=== PATIENT | male | born 1985 | race Hispanic/Latino ===

== ENCOUNTER 2018-06-17 18:31 | Emergency (ER) | payer SELFPAY ==
[~2018-06-17] VITALS: Ht 175.3 cm; Wt 100.0 kg
[~2018-06-17 18:31] MED LIST: NO HOME MEDS
[2018-06-17] MEDS ORDERED: IBUPROFEN600 MG PO (19:40)
[2018-06-17] MEDS ORDERED: KEFLEX500 M1 PO (19:40)
[2018-06-17] MEDS ORDERED: BACTRIM DS1 TAB PO (19:40)
[2018-06-17 19:44] VITALS: BP 148/82
== END 2018-06-17 19:50 | disposition home or self-care (01) | DRG 603 ==
LOC: ED 18:31
DX: L03.113 Cellulitis of right upper limb (principal); M25.421 Effusion, right elbow

== ENCOUNTER 2018-06-19 15:41 | Observation (INO) | payer SELFPAY ==
[~2018-06-19] VITALS: Ht 175.3 cm; Wt 107.5 kg
[~2018-06-19 15:41] MED LIST changes: +BACTRIM DS1 TAB PO; +IBUPROFEN600 MG PO; +KEFLEX500 M1 PO
--- NOTE | 2018-06-19 15:51 | NUR ---
PT TO ROOM FOR EXAM
--- NOTE | 2018-06-19 16:00 | NUR ---
IV INITIATED AND LABS AND BC X 2 COLLECTED. PT AWARE OF PROBABLE PLAN OF CARE AND WAIT TIME. CALL DAVISON WITHIN REACH.
[2018-06-19 16:25] LABS: HEMATOCRIT 43.7 % (39.0-50.0); IMMATURE GRANULOCYTES 0.2 % (0.0-5.0); MEAN CELL VOLUME 91.4 fL CALC (80.0-100.0); MEAN CORPUSCULAR HGB 33.5 pG CALC (26.0-32.0); MEAN CORPUSCULAR HGB CONC 36.6 g/L CALC (32.0-36.0); NEUT# 8.81 thou/uL (1.82-7.42); RED BLOOD COUNT 4.78 mill/uL (4.70-6.10); RED CELL DISTRI WIDTH 11.1 % (11.5-15.5)
[2018-06-19 16:43] LABS: ALKALINE PHOSPHATASE 102 u/l (38-126); ANION GAP 12 (6-22 (CALC)); BILIRUBIN, TOTAL 0.6 mg/dL (0.0-1.4); BUN 21 mg/dL (9-20); BUN/CREATININE RATIO 17 (12-20 (CALC)); CARBON DIOXIDE 26 mmol/l (22-30); CHLORIDE 105 mmol/l (95-108); CREATININE 1.2 mg/dL (0.7-1.3); GFR > 60 ML/MIN (>=60 (CALC)); GFR FOR AFR.AMER. > 60 ML/MIN (>=60 (CALC)); POTASSIUM 4.2 mmol/l (3.5-5.1); SGOT/AST 32 u/l (17-59); SODIUM 139 mmol/l (137-146); TOTAL PROTEIN 7.3 g/dL (6.3-8.2)
--- NOTE | 2018-06-19 17:00 | NUR ---
PT RESTING COMFORTABLY IN STRETCHER AND DENIES ANY NEEDS AT THIS TIME. PT AWARE OF PENDING RESULTS AND WAIT TIME. CALL DAVISON WTIN REACH.
--- NOTE | 2018-06-19 17:30 | NUR ---
PT AWARE OF PROBABLE PLAN OF CARE AND WAIT TIME. IV ABX INITIATED PER ORDER. PT AND FRIEND DENY ANY NEEDS AT THIS TIME. CALL DAVISON WITHIN REACH.
--- NOTE | 2018-06-19 17:50 | NUR ---
SBAR PRINTED TO FLOOR
--- NOTE | 2018-06-19 18:07 | NUR ---
MD AT BEDSIDE TO DISCUSS RESULTS AND DISCUSS ADMISSION.
--- NOTE | 2018-06-19 18:19 | NUR ---
REPORT CALLED TO KATIE RUIZ.
--- NOTE | 2018-06-19 18:38 | NUR ---
Admission Note Report Given to: KATIE RUIZ Transported by: X Wheelchair Stretcher Transported with: X Nurse Transporter Patent IV [id number] Liquefier PT TO ROOM 272 IN STABLE CONDITION.
[2018-06-19 18:40] VITALS: BP 127/80
--- NOTE | 2018-06-19 18:40 | NUR ---
PT ARRIVED VIA WC ACCOMPANIED BY STAFF. IV SITE IS FREE FROM REDNESS OR EDEMA. AND FAMILY MEMBER
--- NOTE | 2018-06-19 19:13 | NUR ---
REPORT RECEIVED BY DAY NURSE. PT IS UPRIGHT IN BED WATCHING TV. DENIES ANY NEEDS AT THIS TIME. CALL LIGHT AT BEDSIDE.
--- NOTE | 2018-06-20 00:08 | NUR ---
PT AND FAMILY MEMBER ARE SLEEPING SOUNDLY UPON ENTERING ROOM. PT MEDICATED W/IV ANTIBIOTIC THERAPY. DENIES ANY OTHER NEEDS. CALL LIGHT AT SIDE.
[2018-06-20 04:32] VITALS: BP 118/77
--- NOTE | 2018-06-20 05:15 | NUR ---
PT MEDICATED W/IV ANTIBIOTIC THERAPY. PT IS AWAKE AND WATCHING TV W/FAMILY AT BEDSIDE ASLEEP ON COT. PT DENIES ANY NEEDS AT THIS TIME. NO S/S OF DISTRESS NOTED. CALL LIGHT IN HAND AND PT ENCOURAGED TO CALL IF ANY NEEDS ARISE.
--- NOTE | 2018-06-20 07:00 | NUR ---
RECEIVED REPORT FROM MARÍA ELENA YATES. PT RESTING IN BED. NO S/S OF DISTRESS. CALL DAVISON IN REACH. WILL CONTINUE TO MONITOR.
[2018-06-20 08:49] VITALS: BP 127/89
--- NOTE | 2018-06-20 08:49 | NUR ---
PT RESTING IN BED WITH SPOUSE AT BEDSIDE. PT A&O x3. ASSESSMENT COMPLETED AT THIS TIME(SEE INTERVENTION) LUNG SOUNDS CLEAR, HEART SOUNDS NORMAL, BOWEL SOUDS ACTIVE NO SWELLING OR EDEMA NOTED TO LOWER EXTREMITIES. RIGHT ELBOW IS SWOLLEN AND RED WITH NO OPEN AREA OR DRAINAGE NOTED. PT PAIN IS A 4 AT THIS TIME. IV INFUSING WELL NO REDNESS OR EDEMA TO SITE. PT HAS NO OTHER COMPLAINTS AT THIS TIME. CALL DAVISON IN REACH. WILL CONTINUE TO MONITOR.
--- NOTE | 2018-06-20 09:02 | NUR ---
S: DIAMOND SAMAYOA JR is a 32 M who presents with right arm cellulitis. All medications in patient's chart were reviewed. O: VS: BP 118/77, P 72, RR 18,T 97.3 W 107.501 kg, HT 175.26 cm, Scr= 1.2 ,CrCl= 105.79 ml/min A: Blood culture is pending. P: Patient is on zosyn 3.375 gm IV Q6H. Vancomycin ordered for pharmacy to dose. Start Vancomycin 1 gm IV Q8H. Vancomycin trough is drawn before the 4th dose on 06/21/18 at 0500. Vancomycin goal trough is between 10-15 mcg/ml. Pharmacy will follow and or advise on antibiotics use as needed.
--- NOTE | 2018-06-20 10:58 | NUR ---
PT MEDICATED PER ORDER FOR PAIN 11/05. WILL CONTINUE TO MONITOR.
--- NOTE | 2018-06-20 11:30 | NUR ---
PT PAIN NOW AT A 1. TORODOL EFFECTIVE AT THIS TIME. FREDI DESOUZA NOTIFIED.
--- NOTE | 2018-06-20 11:30 | NUR ---
PT TRANSFERRED TO [facility] VIA WHEELCHAIR ACCOMPANIED BY CLAUDIA ROMAN IN STABLE CONDITION
--- NOTE | 2018-06-20 11:56 | NUR ---
PT TRANSFERRED BACK TO [facility] VIA HWEELCHAIR IN STABLE CONDITION ACCOMPANIED BY CLAUDIA ROMAN.
--- NOTE | 2018-06-20 11:59 | NUR ---
PT RETURNED FROM CT VIA WHEELCHAIR.
[2018-06-20 12:57] LABS: HEMATOCRIT 42.9 % (39.0-50.0); HEMOGLOBIN 15.8 g/dl (14.0-18.0); MEAN CELL VOLUME 90.9 fL CALC (80.0-100.0); MEAN CORPUSCULAR HGB 33.5 pG CALC (26.0-32.0); MEAN CORPUSCULAR HGB CONC 36.8 g/L CALC (32.0-36.0); RED BLOOD COUNT 4.72 mill/uL (4.70-6.10)
[2018-06-20 16:00] VITALS: BP 119/52
--- NOTE | 2018-06-20 16:00 | NUR ---
PT RESTING IN BED WITH FAMILY MEMBERS AT BED SIDE. NO S/S OF DISTRESS.
[2018-06-20 19:00] VITALS: BP 133/84
--- NOTE | 2018-06-20 21:50 | NUR ---
PT MEDICATED WITH IV ANTIBIOTIC THERAPY AND MOTRIN FOR REPORTED PAIN 3/10 ON PAIN SCALE. PT WAS SLEEPING, BUT AWOKE TO MY ENTERING ROOM. FAMILY IS AT BEDSIDE ASLEEP ON COT. PT ASSESSED, NO S/S OF DISTRESS NOTED. DENIES ANY OTHER NEEDS AT THIS TIME. CALL LIGHT AT BEDSIDE AND PT ENCOURAGED TO CALL IF ANY NEEDS ARISE.
--- NOTE | 2018-06-21 | NUR ---
PT MEDICATED W/IV ANTIBIOTIC THERAPY AND IV FLUIDS REPLENISHED. PT DENIES ANY OTHER NEEDS. HE WAS SLEEPING UPON MY ENTERING ROOM. FAMILY ASLEEP AT BEDSIDE. NO S/S OF DISTRESS NOTED. CALL LIGHT AT SIDE.
[2018-06-21 05:00] VITALS: BP 112/84
--- NOTE | 2018-06-21 05:06 | NUR ---
PT MEDICATED W/IV ANTIBIOTIC THERAPY AND FOR PAIN 4/10 IN RIGHT ELBOW. LAB IN TO SEE PT AT THIS TIME. PT DENIES ANY OTHER NEEDS, CALL LIGHT W/IN REACH AND PT ENCOURAGED TO CALL IF ANY NEEDS ARISE. FAMILY ASLEEP AT BEDSIDE ON COT.
[2018-06-21 05:50] LABS: HEMATOCRIT 45.6 % (39.0-50.0); HEMOGLOBIN 15.8 g/dl (14.0-18.0); IMMATURE GRANULOCYTES 0.3 % (0.0-5.0); MEAN CELL VOLUME 95.2 fL CALC (80.0-100.0); MEAN CORPUSCULAR HGB CONC 34.6 g/L CALC (32.0-36.0); NEUT# 4.35 thou/uL (1.82-7.42); RED BLOOD COUNT 4.79 mill/uL (4.70-6.10); RED CELL DISTRI WIDTH 11.2 % (11.5-15.5)
--- NOTE | 2018-06-21 06:16 | NUR ---
PT VANCO TROUGH 9. MEDICATED W/IV ANTIBIOTICS ADMINSTERED AT THIS TIME. PT WAS SLEEPING AND FAMILY AT BEDSIDE SLEEPING. DENIES ANY PAIN OR OTHER NEEDS.
--- NOTE | 2018-06-21 07:40 | NUR ---
Vancomycin consult Weight: 107.5 Kilograms Vancomycin single level analysis: Current dose being given: 1000 mg Current dosing interval: 8 hrs Current infusion time (hrs): 2 Single level Trough Data: Trough level obtained: 9 mcg/ml New rate constant (tesfaye): 0.121 hr-1 New half-life: 5.73 Hours New Vd from levels: 75.25 Liters (0.7 L/kg) Vancomycin 1250 mg q 8 hrs. Infuse over 2 hrs Expected Cpeak: 24 mcg/ml Expected Ctrough: 12 mcg/ml
[2018-06-21 08:25] VITALS: BP 116/68
--- NOTE | 2018-06-21 08:25 | NUR ---
ASSESSMENT IS COMPLETD: IV SITE IS FREE FROM REDNESS OR EDEMA. R ARM IS RED AND WARM TO THE TOUCH, PT STATES" IT IS ITCHING NOW". HR IS REG, PULSES ARE STRONG X4, ABD IS SOFT WITH ACTIVE BS. BREATH SOUNDS ARE CLEAR. CALL DAVISON WITHIN REACH. FAMILY IN THE ROOM.
--- NOTE | 2018-06-21 12:45 | NUR ---
PT IS RELAXING IN THE CHAIR, FAMILY IN THE ROOM. HAS AMBULATED IN THE [place]. IV SITE IS FREE FROM REDNESS OR EDEMA. CONTINUE TO OBSERVE AND MONITOR
--- NOTE | 2018-06-21 15:42 | NUR ---
IV SITE DISCONINTUED, CATHETER INTACT. NO REDNESS OR EDEMA. DISCHARGE INSTRUCTIONS GIVEN TO PT AND FAMILY. MEDICATIONS REVIEWED. VERBALIZED UNDERSTANDING. LITERATURE RE: CELLULITIS AND SMOKING GIVEN TO PT. Discharge instructions given. Patient verbalizes understanding of same. Discharged in stable condition via Ambulatory to Home with family. All belongings sent with pt.WORK RELEASE WAS GIVEN TO PT
== END 2018-06-21 15:32 | disposition home or self-care (01) | DRG 603 ==
LOC: ED 15:41 → ED-I 17:37 → ED 18:17 → MS2 18:18
PROVIDERS: Emergency Medicine; Nurse Practitioner Family; ADMIT Internal Medicine; ATTEND Internal Medicine
DX: L03.113 Cellulitis of right upper limb (principal); F17.210 Nicotine dependence, cigarettes, uncomplicated; Z23 Encounter for immunization
CPT/HCPCS: G0378; J3370

== ENCOUNTER 2024-04-27 17:56 | Emergency (ER) | payer SELFPAY ==
[~2024-04-27] VITALS: Ht 175.3 cm; Wt 113.3 kg
[2024-04-27] MEDS ORDERED: LIDOcaine HCl 1% (Local Anesth.) 20 ML VIAL STI STA (18:19)
[2024-04-27] MEDS ORDERED: NEOMYCIN-BACITRACIN-POLYMYXIN 0.5 GM/PAK PAK TOP ONE (18:20)
[2024-04-27] MEDS ORDERED: Diph, Acellular Pertussis, Tet 0.5 ML/VIAL (Tdap) SDV IM ONE (18:20)
[2024-04-27] MEDS ORDERED: POVIDONE IODINE 0.5 OZ/BTL TOP ONE (18:20)
[2024-04-27] MEDS ORDERED: SODIUM CHLORIDE 500 ML BTL IR ONE (18:20)
[2024-04-27] MEDS ORDERED: KEFLEX500 MG PO (19:13)
== END 2024-04-27 19:27 | disposition home or self-care (01) | DRG 605 ==
LOC: ED 17:56
PROC: 0HQGXZZ Repair Left Hand Skin, External Approach (ICD-10-PCS; principal; 2024-04-27)
DX: S61.012A Laceration without foreign body of left thumb without damage to nail, initial encounter (principal); F17.200 Nicotine dependence, unspecified, uncomplicated; W26.0XXA Contact with knife, initial encounter; Y99.0 Civilian activity done for income or pay

== ENCOUNTER 2024-08-31 09:17 | Emergency (ER) | payer SELFPAY ==
[~2024-08-31] VITALS: Ht 175.3 cm; Wt 97.0 kg
[2024-08-31] VITALS (8 sets, daily range): BP systolic 115–135; BP diastolic 76–87
[~2024-08-31 09:17] MED LIST changes: +KEFLEX500 MG PO
[2024-08-31 09:34] LABS: BASO% 0.5 % (0-3); EOS% 2.3 % (0-8); HEMATOCRIT 47.9 % (39.0-50.0); HEMOGLOBIN 17.1 g/dl (14.0-18.0); IMMATURE GRANULOCYTES 0.2 % (0.0-5.0); LYMPH% 3.7 % (15-41); MEAN CELL VOLUME 90.4 fL CALC (80.0-100.0); MEAN CORPUSCULAR HGB 32.3 pG CALC (26.0-32.0); MEAN CORPUSCULAR HGB CONC 35.7 g/dL CAL (32.0-36.0); MONO% 12.9 % (2-13); NEUT# 6.53 thou/uL (1.82-7.42); NEUT% 80.4 % (42-76); RED BLOOD COUNT 5.3 mill/uL (4.70-6.10); RED CELL DISTRI WIDTH 11.5 % (11.5-15.5)
[2024-08-31 09:59] LABS: ALBUMIN 4.4 g/dL (3.2-5.0); ALKALINE PHOSPHATASE 86 u/l (38-126); ANION GAP 14 (6-22 (CALC)); BILIRUBIN, TOTAL 0.8 mg/dL (0.2-1.3); BUN 11 mg/dL (9-20); BUN/CREATININE RATIO 11 (12-20 (CALC)); CARBON DIOXIDE 27 mmol/l (22-30); CHLORIDE 99 mmol/l (95-108); ESTIMATED GFR 98 ML/MIN (>=90 (CALC)); POTASSIUM 3.6 mmol/l (3.5-5.1); SGOT/AST 35 u/l (17-59); SODIUM 136 mmol/l (137-146); TOTAL PROTEIN 7.6 g/dL (6.3-8.2)
[2024-08-31] MEDS ORDERED: NAPROXEN500 MG PO (11:12)
[2024-08-31] MEDS ORDERED: TAM75CAP PO (11:12)
[2024-08-31] MEDS ORDERED: KETOROLAC TROMETHAMINE 30 MG/ML SDV IV ONE (11:15)
== END 2024-08-31 11:40 | disposition home or self-care (01) | DRG 153 ==
LOC: ED 09:17
PROVIDERS: Family Medicine
DX: J11.1 Influenza due to unidentified influenza virus with other respiratory manifestations (principal); Z20.822 Contact with and (suspected) exposure to COVID-19; F17.200 Nicotine dependence, unspecified, uncomplicated